=== PATIENT | female | born 1955 | race African-American/Black ===

== ENCOUNTER 2021-06-01 11:59 | Emergency (ER) | payer MEDICARE, SELFPAY ==
--- NOTE | ~2021-06-01 | CT_ITS ---
EXAMINATION: CT abdomen pelvis w con INDICATION: Chills and body aches TECHNIQUE: Computed tomographic images of the abdomen and pelvis were obtained after the administrati on of 100 cc of Omnipaque 350 intravenous contrast. The dose-length product (DLP) was 756.96 mGy-cm. Automated exposure control and iterative reconstruction technique were employed. COMPARISON: None available FINDINGS: There are patchy airspace opacities of the visualized lower lobes. The heart size is normal . Changes of gastric bypass surgery are noted. The liver, spleen, pancreas, gallbladder, and adrenal glands are normal. Cysts of the kidneys measure up to 1.5 cm on the left. No pathologically enlarged abdominal or pelvic lymph nodes are identified. There is no free intraperitoneal gas or evidence of b owel obstruction. There is severe lumbar spondylosis. IMPRESSION: 1. Patchy airspace opacities of the visualized lower lobes, consistent with pneumonia. Reviewed, dictated and finalized at location A. WORKER IMPRESSION: 1. Patchy airspace opacities of the visualized lower lobes, consistent with pne umonia.
[2021-06-01 12:07] VITALS: BP 154/91; PULSE 111; RESP 18; TEMP 37; O2SAT 100
--- NOTE | 2021-06-01 12:36 | ED.GENADULT ---
HPI - General Adult General Chief complaint: Nausea/Vomiting/Diarrhea Stated complaint: vomiting, chills Time Seen by Provider: 06/01/21 12:15 Source: patient and RN notes reviewed Limitations: no limitations History of Present Illness HPI narrative: 66-year-old female history gastric bypass presents to the emergency department complaining of nausea vomiting and diarrhea for the last 3 days. Patient has had a cough. Patient is vaccinated against covid. Patient has hsx of gastric bypass. Related Data Allergies Allergy/AdvReac Type Severity Reaction Status Date / Time No Known Allergies Allergy Verified 06/01/21 13:29 Review of Systems Review of Systems: CONSTITUTIONAL: Generalized fatigue and chills with subjective fever. EYES: Denies visual changes, redness, or discharge. ENT: Denies rhinorrhea, congestion, sore throat, or otalgia. CARDIOVASCULAR: Denies chest pain, palpitations, or edema. RESPIRATORY: Does have cough but denies any shortness of breath. GASTROINTESTINAL: Nausea vomiting diarrhea with generalized abdominal pain, more on the left GENITOURINARY: Denies dysuria or hematuria. SKIN: Denies rash or itching. MUSCULOSKELETAL: Denies back pain, joint pain, or myalgia. NEUROLOGIC: Denies headache, numbness, or weakness. PSYCHIATRIC: Denies anxiety or depression. All systems reviewed & are unremarkable except as noted in HPI and below Exam Narrative: APPEARANCE: Well appearing, no pain, no distress, well-nourished. HEAD: normocephalic, atraumatic. EYES: PERRLA/EOMI, conjunctivae clear. NECK: Supple. No adenopathy, no masses. RESPIRATORY: Airway patent, respirations nonlabored. Clear to auscultation bilaterally, no rales, rhonchi, wheezing. CARDIOVASCULAR: Regular rate and rhythm without murmurs rubs or gallops. ABDOMINAL: Soft, nontender, nondistended, normal bowel sounds MUSCULOSKELETAL: Moves all extremities. Strength/ROM intact, No edema, No calf tenderness. SKIN: Warm, dry. Normal Color PSYCHIATRIC: Normal affect/mood. Course Course Emergency Course: Patient was updated on the results of her imaging. CT scan showed no intra-abdominal pathology. Was evidence of a pneumonia. Patient was started on antibiotics while in the emergency room. Patient's Covid test was negative. Patient was comfortable with the plan for discharge and close follow-up. Patient was no distress at time of discharge from the emergency room. Vital Signs Vital signs: Vital Signs Temperature 98.6 F 06/01/21 12:07 Pulse Rate 111 H 06/01/21 12:07 Respiratory Rate 18 06/01/21 12:07 Blood Pressure 154/91 H 06/01/21 12:07 Pulse Oximetry 100 06/01/21 12:07 Temperature 98.6 F 06/01/21 12:07 Pulse Rate 102 H 06/01/21 15:15 Respiratory Rate 17 06/01/21 15:15 Blood Pressure 158/93 H 06/01/21 15:15 Pulse Oximetry 98 06/01/21 15:15 Medical Decision Making Vital Signs Vital Signs: Vital Signs Temperature 98.6 F 06/01/21 12:07 Pulse Rate 111 H 06/01/21 12:07 Respiratory Rate 18 06/01/21 12:07 Blood Pressure 154/91 H 06/01/21 12:07 Pulse Oximetry 100 06/01/21 12:07 Temperature 98.6 F 06/01/21 12:07 Pulse Rate 102 H 06/01/21 15:15 Respiratory Rate 17 06/01/21 15:15 Blood Pressure 158/93 H 06/01/21 15:15 Pulse Oximetry 98 06/01/21 15:15 Lab Data Lab results reviewed: Yes I reviewed the patient's lab results. Result diagrams: 06/01/21 13:35 06/01/21 13:35 Labs: Lab Results 06/01/21 06/01/21 06/01/21 Range/Units 13:35 13:35 13:35 WBC 15.7 H (4.5-10.0) K/mm3 RBC 4.15 L (4.2-5.4) M/mm3 Hgb 12.1 (12.0-15.0) g/dL Hct 36.5 L (37.0-47.0) % MCV 88.0 (80-100) fl MCH 29.2 (26-34) pg MCHC 33.2 (32-36) g/dl RDW 13.4 (11.5-14.5) % Plt Count 168 (150-375) k/mm3 MPV 11.5 H (7.4-10.4) fl Immature Gran % (Auto) 0.9 H (0-0.5) % Neut % (Auto) 88.9 H (45.5-73.1) % Lymph % (Auto) 6.8 L (18.3-44.2) %
[2021-06-01] MEDS: SODIUM CHLORIDE 0.9% IV 1,000 ML 999 ML IV CONT (13:31)
[2021-06-01] MEDS: ONDANSETRON INJ 4 MG/2 ML VIAL IV PUSH (13:31)
[2021-06-01] MEDS: Please add drug allergy info to patient profile. 1 EACH XX (13:31)
[2021-06-01] MEDS: HYDROmorphone HCL INJ (*CRX) 1 MG/ML SYR 0.5 MG IV PUSH (13:45)
[2021-06-01 13:49] LABS: Basophils Percent Auto 0.1 % (0.2-1.2); Hematocrit 36.5 % (37.0-47.0); Hemoglobin 12.1 g/dL (12.0-15.0); Immature Granulocyte Absolute 0.14 K/mm3 (0.00-0.031); Immature Granulocyte Percent A 0.9 % (0-0.5); Lymphocytes Absolute Auto 1.07 K/mm3 (0.9-3.2); Lymphocytes Percent Auto 6.8 % (18.3-44.2); Mean Corpuscular HGB Conc 33.2 g/dl (32-36); Mean Corpuscular Hemoglobin 29.2 pg (26-34); Mean Platelet Volume 11.5 fl (7.4-10.4); Monocytes Absolute Auto 0.5 K/mm3 (0.1-0.6); Monocytes Percent Auto 3.3 % (2.6-8.5); Neutrophils Absolute Auto 13.9 K/mm3 (1.3-6.7); Neutrophils Percent Auto 88.9 % (45.5-73.1); Platelet Count Result 168 k/mm3 (150-375); Red Blood Count 4.15 M/mm3 (4.2-5.4); Red Cell Distribution Width 13.4 % (11.5-14.5); White Blood Count 15.7 K/mm3 (4.5-10.0)
[2021-06-01 13:54] LABS: Lactic Acid Reflex 1.3 mmol/L (0.7-2.1)
[2021-06-01 13:56] LABS: Alanine Aminotransferase 16 U/L (4-35); Albumin Level 3.5 g/dL (3.5-5.1); Alkaline Phosphatase 126 U/L (38-126); Anion Gap 6 mmol/L (8-16); Aspartate Amino Transferase 25 U/L (14-36); Bilirubin,Total 1.2 mg/dL (0.2-1.3); Blood Urea Nitrogen 14 mg/dL (7-17); Calcium 8.4 mg/dL (8.4-10.2); Carbon Dioxide 27 mmol/L (22-30); Chloride 101 mmol/L (98-107); Estimated CRCL calculation 52 ml/min; Estimated Glomerular Filt Rate > 60; Glucose 121 mg/dL (65-110); Potassium 3.2 mmol/L (3.4-5.0); Sodium 134 mmol/L (137-145)
--- NOTE | 2021-06-01 13:59 | PC.NURSE ---
asked pt for urine sample. pt states she is unable to go at this time. and is refusing straight cath at this time.
--- NOTE | 2021-06-01 14:05 | PC.NURSE ---
pt to CT at this time.
[2021-06-01 14:06] LABS: Lipase 43 U/L (23-300)
[2021-06-01 14:47] LABS: SARS-CoV-2 RNA PCR Negative
[2021-06-01 15:15] VITALS: BP 158/93; PULSE 102; RESP 17; O2SAT 98
== END 2021-06-01 15:19 | disposition home or self-care (01) ==
PROVIDERS: Emergency Provider Emergency Medicine; PCP Registered Nurse
DX: J18.9 Pneumonia, unspecified organism (principal); R11.2 Nausea with vomiting, unspecified; Z20.822 Contact with and (suspected) exposure to COVID-19; Z98.84 Bariatric surgery status
CPT/HCPCS: 36415; 74177; 80053; 83605; 83690; 85025; 87040; 87147; 87181; 87186; 96374; 96375; 99284; C9803; J1170; J2405; J7030; Q9967; U0003; U0005

== ENCOUNTER 2021-06-07 12:44 | Inpatient (IN) | payer MEDICARE, SELFPAY ==
[2021-06-07] VITALS (17 sets, daily range): BP systolic 147–182; BP diastolic 71–98; PULSE 69–103; RESP 9–32; TEMP 36.1–37.2; O2SAT 93–100; BMI 37.4
--- NOTE | ~2021-06-07 | XR_ITS ---
XR chest 1V portable 06/07/2021 13:06 Indication: Cough Procedure: AP portable chest Comparison: No prior studies for comparison. Findings: Heart size normal. Elevated left diaphragm. Linear subsegmental atelectasis right perihilar and left basilar locations. No focal pneumonia, edema, significant effusion or pneumothorax. No acut e osseous abnormality. Impression: 1: Bilateral subsegmental atelectasis with elevation of the left diaphragm. Reviewed, dictated and finalized at location B. CUT OUT WORKER Impression: 1: Bilateral subsegmental atelectasis with elevation of the left diaphragm.
--- NOTE | 2021-06-07 13:30 | PC.NURSE ---
pt states has not taken her high blood pressure medications x 4-5 days because she hasnt felt good.
[2021-06-07 13:32] LABS: Basophils Percent Auto 0.2 % (0.2-1.2); Hematocrit 38.7 % (37.0-47.0); Hemoglobin 12.4 g/dL (12.0-15.0); Immature Granulocyte Absolute 0.15 K/mm3 (0.00-0.031); Immature Granulocyte Percent A 1.7 % (0-0.5); Lymphocytes Absolute Auto 0.62 K/mm3 (0.9-3.2); Lymphocytes Percent Auto 7.2 % (18.3-44.2); Mean Corpuscular Hemoglobin 28.8 pg (26-34); Mean Corpuscular Volume 89.8 fl (80-100); Mean Platelet Volume 9.4 fl (7.4-10.4); Monocytes Absolute Auto 0.2 K/mm3 (0.1-0.6); Monocytes Percent Auto 2.4 % (2.6-8.5); Neutrophils Absolute Auto 7.6 K/mm3 (1.3-6.7); Neutrophils Percent Auto 88.5 % (45.5-73.1); Platelet Count Result 505 k/mm3 (150-375); Red Blood Count 4.31 M/mm3 (4.2-5.4); Red Cell Distribution Width 13.1 % (11.5-14.5); White Blood Count 8.6 K/mm3 (4.5-10.0)
[2021-06-07] MEDS: atenoloL 50 MG TABLET PO (13:38)
[2021-06-07 13:44] LABS: Lactic Acid Reflex 2.3 mmol/L (0.7-2.1)
[2021-06-07 13:47] LABS: Alanine Aminotransferase 17 U/L (4-35); Albumin Level 3.7 g/dL (3.5-5.1); Alkaline Phosphatase 124 U/L (38-126); Anion Gap 10 mmol/L (8-16); Aspartate Amino Transferase 29 U/L (14-36); Bilirubin,Total 0.6 mg/dL (0.2-1.3); Blood Urea Nitrogen 6 mg/dL (7-17); Calcium 8.8 mg/dL (8.4-10.2); Carbon Dioxide 25 mmol/L (22-30); Chloride 102 mmol/L (98-107); Estimated CRCL calculation 68 ml/min; Estimated Glomerular Filt Rate > 60; Glucose 193 mg/dL (65-110); Sodium 137 mmol/L (137-145)
[2021-06-07] MEDS: SODIUM CHLORIDE 0.9% IV 1,000 ML 999 ML IV CONT (14:59)
[2021-06-07 15:00] LABS: SARS-CoV-2 RNA PCR Negative
--- NOTE | 2021-06-07 15:10 | ED.GENADULT ---
HPI - General Adult General Chief complaint: Recheck/Abnormal Lab/Rx Stated complaint: Abnormal Labs Time Seen by Provider: 06/07/21 12:45 Source: RN notes reviewed History of Present Illness HPI narrative: Patient presents emergency department from home for positive blood cultures. The patient was seen in the emergency department on 01 June for nausea vomiting at that time she was found to have lower lobe infiltrates and was started on a Z-Deng with blood cultures obtained patient states she took a Z-Deng but was continued to have some mild cough and called her PCP yesterday and was started on another Z-Deng yesterday states she was called today and recommended come the emergency department secondary to positive blood cultures she denies any fevers or chills does note some rhinorrhea and a cough she denies abdominal pain nausea or vomiting states she had been feeling generally weak but had been feeling better over the past several days Related Data Home Medications Medication Instructions Recorded Confirmed amlodipine-benazepril 1 cap PO DAILY 06/07/21 atenolol 50 mg PO DAILY 06/07/21 Allergies Allergy/AdvReac Type Severity Reaction Status Date / Time No Known Allergies Allergy Verified 06/01/21 13:29 Review of Systems Review of Systems: Gen.: Denies fevers or chills Eyes: Denies eye pain or visual change ENT: Reports congestion Respiratory: See HPI CV: Denies chest pain or palpitations GI: Denies abdominal pain nausea, emesis or diarrhea Musculoskeletal: Denies back pain or muscle pain Neuro: Denies numbness, tingling, weakness or focal weakness Skin: Denies rash Except as documented, all other systems reviewed and negative [facility] Past Medical History Medical History (Updated 06/07/21 @ 15:12 by Solomon Forte DO) Patient denies significant medical history Social History Social History (Updated 06/07/21 @ 15:11 by Solomon Forte DO) Smoking status: Never smoker Exam Narrative: APPEARANCE: No acute distress, nontoxic, resting in bed EYES: EOMI HEENT: Normocephalic, atraumatic, OMM RESPIRATORY: No respiratory distress Clear to auscultation bilaterally with no rhonchi wheezing or rales. CARDIOVASCULAR: Regular rate and rhythm without murmurs rubs or gallops. ABDOMINAL: Soft, nontender, nondistended, no rebound or guarding MUSCULOSKELETAl: Moves all extremities. No clubbing, cyanosis or edema. NEURO: Awake and alert. Following commands, speech normal, no focal deficits SKIN:: Warm, dry. No rashes lesions or abrasions PSYCHIATRIC: Normal affect/mood, Course Course Emergency Course: Reviewed old records patient with 2 blood cultures from 01 June showing Streptococcus pneumo sensitive to Levaquin and clindamycin Cussed with WEB OPERATIONS MANAGER Crystal for Dr. Cruz presentation work-up agrees with admission Discussed with patient and family results of workup and diagnosis. Discussed need for admission. Patient and family understand and agree to current treatment plan Vital Signs Vital signs: Vital Signs Pulse Rate 97 06/07/21 12:52 Respiratory Rate 19 06/07/21 12:52 Blood Pressure 177/98 H 06/07/21 12:52 Temperature 98.9 F 06/07/21 12:54 Pulse Rate 84 06/07/21 13:46 Respiratory Rate 15 06/07/21 13:46 Blood Pressure 165/88 H 06/07/21 13:46 Pulse Oximetry 96 06/07/21 13:46 Medical Decision Making Vital Signs Vital Signs: Vital Signs Pulse Rate 97 06/07/21 12:52 Respiratory Rate 19 06/07/21 12:52 Blood Pressure 177/98 H 06/07/21 12:52 Temperature 98.9 F 06/07/21 12:54 Pulse Rate 84 06/07/21 13:46 Respiratory Rate 15 06/07/21 13:46 Blood Pressure 165/88 H 06/07/21 13:46 Pulse Oximetry 96 06/07/21 13:46 Lab Data Result diagrams: 06/07/21 13:19 06/07/21 13:19 Labs: Lab Results 06/07/21 06/07/21 06/07/21 Range/Units 13:19 13:19 13:19 WBC 8.6 (4.5-10.0) K/mm3 RBC 4.31 (4.2-5.4) M/mm3 Hgb 12.
--- NOTE | 2021-06-07 15:46 | PC.NURSE ---
Food tray ordered for patient.
--- NOTE | 2021-06-07 15:48 | PM.IMHP ---
H&P: HPI History of Present Illness Date/Time: 06/07/21 15:48 Chief Complaint: Abnormal laboratories Narrative: Ms. Aldrich is a 66-year-old female who presented to emergency room after being called and told she had positive blood cultures. Patient states that she was here 6 days ago and was diagnosed with pneumonia and given a Z-Deng. Patient states that she was feeling much improved today and was very surprised to be called that she had positive blood cultures. Patient states her cough is significantly improved. Patient denies any sputum production. Patient denies any shortness of breath. Patient states the last 3-4 days she has not been taking her medications because she felt too weak and too tired. Patient denies any chest pain, shortness Lauren lightheadedness, dizziness, syncopal, or near syncopal episodes. Patient denies any fever or chills. Patient denies any dysuria, hematuria, frequency, or urgency. Patient has a known history of hypertension and states she states she has not been taking her medications for the last 3-4 days secondary to not feeling well. Review of Systems Review of Systems: A 12 point review of systems was completed patient all pertinent positive and negative per HPI the remainder are unremarkable. [facility] Past Medical History Medical History (Updated 06/07/21 @ 16:07 by Paty Yun APRN) Hypertension Patient denies significant medical history Surgical History Surgical History (Updated 06/07/21 @ 16:07 by Paty Yun APRN) History of gastric bypass Social History Social History (Updated 06/07/21 @ 15:11 by Solomon Forte DO) Smoking status: Never smoker Meds Home Medications and Allergies Home Medications Medication Instructions Recorded Confirmed Type azithromycin See Rx Instructions .ROUTE 06/01/21 Rx .COMPLEX #6 tablet benzonatate 100 mg PO BID PRN #14 cap 06/01/21 Rx ondansetron 4 mg PO Q8H PRN #14 tablet 06/01/21 Rx amlodipine-benazepril 1 cap PO DAILY 06/07/21 History atenolol 50 mg PO DAILY 06/07/21 History Allergies Allergy/AdvReac Type Severity Reaction Status Date / Time No Known Allergies Allergy Verified 06/01/21 13:29 Vital Signs Vital Signs - 24 hr 06/07/21 12:52 06/07/21 12:53 06/07/21 12:54 Temperature 37.2 C Pulse Rate 97 103 H 94 Respiratory Rate 19 16 20 Blood Pressure 177/98 H 177/98 H Pulse Oximetry 93 100 06/07/21 13:01 06/07/21 13:02 06/07/21 13:15 Temperature Pulse Rate 97 84 Respiratory Rate 32 H 22 H 14 Blood Pressure Pulse Oximetry 06/07/21 13:26 06/07/21 13:27 06/07/21 13:30 Temperature Pulse Rate 84 81 81 Respiratory Rate 13 13 9 L Blood Pressure 169/90 H Pulse Oximetry 100 100 06/07/21 13:31 06/07/21 13:38 06/07/21 13:45 Temperature Pulse Rate 83 88 81 Respiratory Rate 18 20 28 H Blood Pressure 171/89 H 171/89 H Pulse Oximetry 97 06/07/21 13:46 Temperature Pulse Rate 84 Respiratory Rate 15 Blood Pressure 165/88 H Pulse Oximetry 96 Exam Narrative: Constitutional: Patient is well-nourished in no acute distress HEENT: Moist mucous membranes. No scleral icterus. No lymphadenopathy. Lungs: Lung sounds are clear to auscultation bilaterally. No accessory muscle use. No rhonchi, rales, or wheezes noted. Cardiovascular: Apical pulse is regular rate and rhythm. S1-S2 noted, no S3 or S4 noted. No gallops, murmurs, or rubs noted. Abdomen: Soft, round, and nontender. No palpable masses. Extremities: No edema. Nontender. Skin: No rashes or lesions. Warm and dry. Skin is intact. Neurological: No focal neurological deficits. Cranial nerves II-XII grossly intact. Psychiatric: Cooperative, appropriate mood, and affect. H&P: Results Labs Labs: Short CBC 06/07/21 Range/Units 13:19 WBC 8.6 (4.5-10.0) K/mm3 Hgb 12.4 (12.0-15.0) g/dL Hct 38.7 (37.0-47.0) % Plt Count 505 H D (150-375) k/mm3 [facility] 06/07/21 1
--- NOTE | 2021-06-07 16:07 | PC.NURSE ---
1500 Report received from JUSTEN Acevedo
[2021-06-07 16:26] LABS: Reflex Lactic Acid Yes or No Add Lactic
--- NOTE | 2021-06-07 16:33 | PC.NURSE ---
Patient given food tray.
[2021-06-07 16:54] LABS: Lactic Acid 1.1 mmol/L (0.7-2.1)
--- NOTE | 2021-06-07 18:27 | ADMGEN ---
This patient, Nevaeh Aldrich, was admitted to Medical Room 346-01. Patient/family oriented to hospital policies and general routines including ID bracelet, bed and alarms, visiting hours, pain management, procedures, bathroom and other care routines, personal items, smoking policy, room service/diet, and visiting hours. Information on how to activate the Rapid Response Team has been discussed. Patient/Family are encouraged to report perceived risks to care and to ask questions if they do not understand what they are told or what they should do.
[2021-06-07] MEDS: BENZONATATE 100 MG CAPSULE PO (21:49)
[2021-06-08 06:24] VITALS: BP 163/93; PULSE 67; RESP 18; TEMP 35.9; O2SAT 100
[2021-06-08 08:37] VITALS: PULSE 70
[2021-06-08] MEDS: lisinopriL 20 MG TABLET 40 MG PO (08:37)
[2021-06-08] MEDS: atenoloL 50 MG TABLET PO (08:37)
[2021-06-08] MEDS: amLODIPine BESYLATE 5 MG TABLET 10 MG PO (08:37)
[2021-06-08] MEDS: ENOXAPARIN 40 MG/0.4 ML SYRINGE SUB-Q (08:37)
[2021-06-08] MEDS: SODIUM CHLORIDE 0.9% IV 1,000 ML 999 ML IV CONT (08:41)
[2021-06-08 10:27] LABS: Basophils Percent Auto 0.4 % (0.2-1.2); Hematocrit 38.8 % (37.0-47.0); Hemoglobin 11.8 g/dL (12.0-15.0); Immature Granulocyte Absolute 0.11 K/mm3 (0.00-0.031); Immature Granulocyte Percent A 1.4 % (0-0.5); Lymphocytes Percent Auto 21.6 % (18.3-44.2); Mean Corpuscular HGB Conc 30.4 g/dl (32-36); Mean Corpuscular Hemoglobin 28.6 pg (26-34); Mean Corpuscular Volume 94.2 fl (80-100); Mean Platelet Volume 9.4 fl (7.4-10.4); Monocytes Absolute Auto 0.6 K/mm3 (0.1-0.6); Neutrophils Absolute Auto 5.4 K/mm3 (1.3-6.7); Neutrophils Percent Auto 68.6 % (45.5-73.1); Platelet Count Result 460 k/mm3 (150-375); Red Blood Count 4.12 M/mm3 (4.2-5.4); Red Cell Distribution Width 13.3 % (11.5-14.5); White Blood Count 7.9 K/mm3 (4.5-10.0)
[2021-06-08 11:15] LABS: Anion Gap 6 mmol/L (8-16); Blood Urea Nitrogen 5 mg/dL (7-17); Calcium 8.2 mg/dL (8.4-10.2); Carbon Dioxide 24 mmol/L (22-30); Chloride 113 mmol/L (98-107); Estimated CRCL calculation 61 ml/min; Estimated Glomerular Filt Rate > 60; Glucose 97 mg/dL (65-110); Potassium 3.4 mmol/L (3.4-5.0); Sodium 143 mmol/L (137-145)
--- NOTE | 2021-06-08 13:22 | PM.IMPN ---
Progress Note: A&P Additional Plan Assessment and plan (1) Bacteremia: Code(s): R78.81 - Bacteremia Status: Acute Assessment and Plan: - Patient's blood cultures show strep pneumoniae and 2 bottles with sensitivity to Levaquin. Patient has been given an IV dose of Levaquin and will continue with this medication for a total of 14 days as an outpatient upon discharge to home. - No acute signs of Sepsis, does not meet SIRS criteria, and pt. is asymptomatic. - Original Treatment was for PNA that caused the BC to be drawn in the first place. - Predinsone 50 mg daily for 5 days started. (2) Hypertension: Code(s): I10 - Essential (primary) hypertension Status: Acute Assessment and Plan: - Pt's home medications were re-ordered and we are monitoring. Time Spent With Patient Time with patient: 15 - 25 minutes Subjective Date/time seen: 06/08/21 0840 This pt was examined at the bedside in interval assessment. She is starting to feel stronger, and VSS with exception of her elevated BP. This is likely because she has not taken her meds in several days because she reported that she was too weak. These meds have been re-ordered and we are observing her BP today. If remains stable, and no further signs of bacteremia that showed on her Blood culture of 06/01/21, then she will be stable for discharge to home tomorrow to resume her home meds and also continue with 14 days of po Levaquin therapy for Strep Pneumoniae that is sensitive to the Levaquin. The pt. is without any complaints of pain, dyspnea or any N/V. She is not having any respiratory distress or complaints at this time of any URI symptomology. Review of Systems Review of Systems: No new complaints. All systems reviewed & are unremarkable except as noted in HPI and below Exam Narrative: Constitutional: Patient is well-nourished in no acute distress HEENT: Moist mucous membranes. No scleral icterus. No lymphadenopathy. Lungs: Lung sounds are clear to auscultation bilaterally. No accessory muscle use. No rhonchi, rales, or wheezes noted. Cardiovascular: Apical pulse is regular rate and rhythm. S1-S2 noted, no S3 or S4 noted. No gallops, murmurs, or rubs noted. Abdomen: Soft, round, and nontender. No palpable masses. Extremities: No edema. Nontender. Skin: No rashes or lesions. Warm and dry. Skin is intact. Neurological: No focal neurological deficits. Cranial nerves II-XII grossly intact. Psychiatric: Cooperative, appropriate mood, and affect. Objective Data Vital Signs Vital Signs: Vital Signs - 24 hr 06/07/21 13:26 06/07/21 13:27 06/07/21 13:30 Temperature Pulse Rate 84 81 81 Respiratory Rate 13 13 9 L Blood Pressure 169/90 H Pulse Oximetry 100 100 06/07/21 13:31 06/07/21 13:38 06/07/21 13:45 Temperature Pulse Rate 83 88 81 Respiratory Rate 18 20 28 H Blood Pressure 171/89 H 171/89 H Pulse Oximetry 97 06/07/21 13:46 06/07/21 17:25 06/07/21 18:41 Temperature 98.5 F 98.0 F Pulse Rate 84 73 70 Respiratory Rate 15 18 20 Blood Pressure 165/88 H 182/86 H 157/88 H Pulse Oximetry 96 98 100 06/07/21 20:19 06/07/21 22:27 06/08/21 06:24 Temperature 97.0 F L 96.7 F L Pulse Rate 69 76 67 Respiratory Rate 18 18 Blood Pressure 147/71 H 163/93 H Pulse Oximetry 94 100 100 06/08/21 08:37 Temperature Pulse Rate 70 Respiratory Rate Blood Pressure Pulse Oximetry Intake/Output Intake/Output: Intake & Output 06/05/21 06/06/21 06/07/21 06/08/21 23:59 23:59 23:59 23:59 Intake Total 1150 980 Output Total 1100 Balance 1150 -120 Meds/Results Medications: Active Medications Generic Name Dose Route Start Last Admin Trade Name Freq PRN Reason Stop Dose Admin Amlodipine Besylate 10 mg 06/08/21 09:00 06/08/21 08:37 Amlodipine Besylate 5 Mg Tablet PO 07/08/21 08:59 10 mg DAILY JESSICA Administration Atenolol 50 mg 06/08/21 09:00 06/08/21 08:37 Atenolol 50 Mg Tablet PO
[2021-06-08] MEDS: predniSONE 40 MG, predniSONE 10 MG 50 MG PO (13:38)
[2021-06-08 14:00] VITALS: BP 143/59; PULSE 68; RESP 16; TEMP 36.1; O2SAT 100
--- NOTE | 2021-06-08 14:51 | WPDCDIQUERY2 ---
CDI Query Clarification Request 06/07 ERP documented diagnosis Bacteremia and Emergency Course: Reviewed old records patient with 2 blood cultures from 01 June showing Streptococcus pneumo sensitive to Levaquin and clindamycin 06/07 Bacteremia is documented in the problem list, bacteremia is defined as a Nonspecific laboratory finding of bacteria in the blood. For coding purposes please clarify more specific diagnosis for above findings <Janell Oropeza - Last Filed: 06/08/21 15:03>
[2021-06-08 15:05] LABS: Hemoglobin A1C 5.3 % (<5.7)
[2021-06-08 17:27] LABS: Basophils Percent Auto 0.2 % (0.2-1.2); Hematocrit 41.8 % (37.0-47.0); Immature Granulocyte Absolute 0.06 K/mm3 (0.00-0.031); Immature Granulocyte Percent A 0.6 % (0-0.5); Lymphocytes Absolute Auto 0.92 K/mm3 (0.9-3.2); Lymphocytes Percent Auto 9.5 % (18.3-44.2); Mean Corpuscular HGB Conc 31.1 g/dl (32-36); Mean Corpuscular Hemoglobin 28.3 pg (26-34); Mean Corpuscular Volume 91.1 fl (80-100); Mean Platelet Volume 9.4 fl (7.4-10.4); Monocytes Absolute Auto 0.2 K/mm3 (0.1-0.6); Monocytes Percent Auto 2.1 % (2.6-8.5); Neutrophils Absolute Auto 8.5 K/mm3 (1.3-6.7); Neutrophils Percent Auto 87.6 % (45.5-73.1); Platelet Count Result 598 k/mm3 (150-375); Red Blood Count 4.59 M/mm3 (4.2-5.4); Red Cell Distribution Width 13.4 % (11.5-14.5); White Blood Count 9.7 K/mm3 (4.5-10.0)
[2021-06-08 17:33] LABS: Alanine Aminotransferase 20 U/L (4-35); Albumin Level 3.8 g/dL (3.5-5.1); Alkaline Phosphatase 115 U/L (38-126); Anion Gap 9 mmol/L (8-16); Aspartate Amino Transferase 28 U/L (14-36); Bilirubin,Total 0.5 mg/dL (0.2-1.3); Blood Urea Nitrogen 4 mg/dL (7-17); Calcium 8.8 mg/dL (8.4-10.2); Carbon Dioxide 22 mmol/L (22-30); Chloride 116 mmol/L (98-107); Estimated CRCL calculation 61 ml/min; Estimated Glomerular Filt Rate > 60; Glucose 223 mg/dL (65-110); Potassium 3.6 mmol/L (3.4-5.0); Sodium 147 mmol/L (137-145)
[2021-06-08 22:08] VITALS: BP 149/64; PULSE 66; RESP 18; TEMP 36.7; O2SAT 97
[2021-06-09 06:20] VITALS: BP 133/102; PULSE 64; RESP 18; TEMP 35.7; O2SAT 100
[2021-06-09] MEDS: hydroCHLOROthiazide 12.5 MG CAPSULE PO (08:03)
[2021-06-09] MEDS: lisinopriL 20 MG TABLET 40 MG PO (08:03)
[2021-06-09] MEDS: amLODIPine BESYLATE 5 MG TABLET 10 MG PO (08:03)
[2021-06-09] MEDS: predniSONE 40 MG, predniSONE 10 MG 50 MG PO (08:03)
[2021-06-09 08:04] VITALS: PULSE 64
[2021-06-09] MEDS: atenoloL 50 MG TABLET PO (08:04)
[2021-06-09] MEDS: ENOXAPARIN 40 MG/0.4 ML SYRINGE SUB-Q (08:04)
[2021-06-09 09:56] VITALS: BP 175/63
--- NOTE | 2021-06-09 10:48 | PM.DS ---
DS: Admitting Diagnosis Discharge Date 06/09/2021 Admitting Diagnosis Strep Pneumoniae Bacteremia Hypertension DS: Discharge Diagnosis Discharge Diagnosis (1) Bacteremia due to Streptococcus pneumoniae: Onset Date: Unknown Code(s): R78.81 - Bacteremia; B95.3 - Streptococcus pneumoniae as the cause of diseases classified elsewhere Status: Acute Assessment and Plan: - Pt's blood cultures from her hospital visit 06/01/21 grew out Strep Pneumonaie that was sensitive to Levaquin. The pt was asked to come back to the hospital and be admitted, which she was. She was started on Levaquin and is stable. She feels better overall. She may finish a total of 14 days of Levaquin 750 mg po at home for her treatment and follow up with PCP in one week. - Not meeting sepsis criteria. - VSS (2) Hypertension: Onset Date: Unknown Qualifiers: Hypertension type: primary hypertension Qualified Code(s): I10 - Essential (primary) hypertension Code(s): I10 - Essential (primary) hypertension Status: Chronic Assessment and Plan: - Not well controlled. BP's have been waxing and waning here on her current doses of Amlodipine 10 mg po daily and Lisinopril 40 mg po daily. - This AM, started HCTZ 12.5 mg po daily and will refer to PCP for further follow up/titration/changes in medication management. Her BP is stable at this time with the addition of the new medication. As this is just the beginning of a new medication, I will have pt. make a list of BP's measured TID at the same time daily and have her take that with her to the PCP for further review. DS: Summary Hospital Course Hospital Course: This very pleasant 66 year old female patient with significant PMH of HTN presented to the ER on 06/07/21 after being called by the ER to return for treatment for positive blood cultures from an ER visit on 06/01/21 at which time she was diagnosed with PNA. She was started on Levaquin as her blood culture had grown out Strep Pneumonaie that was sensitive to it. She did not have any symptoms of Sepsis upon arrival or admission and she has been stable in the setting of having a respiratory infection since and is now appropriate for an outpatient treatment with Levaquin daily for 14 days as well as tapering prednisone. Her blood pressure has been fluctuating during admission and at times she has had a DBP in the low 100s despite her normal treatments of Amlodipine 10 mg daily, Lisinopril 40 mg daily. Today HCTZ 12.5 mg po daily was added to her regimen and she had an improvement in her overall BP. She is stable to discharge to home at this time with instructions for a low sodium diet and to keep a log of her pressures TID for her physician to see to further manage her dosing. She is agreeable to this POC and advises she will adhere to it. She also mentions that she has been drinking a lot of soda, and that may be the reason for her BP being elevated. I acknowledged that it may be as there is a lot of sodium in soda, and she is agreeable to not drinking it. Time Spent with Patient Time attestation: Total time spent providing and/or coordinating discharge services: 35 minutes Exam Const: General: comfortable and no acute distress Limitations: no limitations HENMT: Mouth: Yes dry mucous membranes Eyes: Sclera: sclerae normal Neck: Neck: supple and no JVD Lymphatic: lymphadenopathy not noted Resp: Effort & Inspection: normal respiratory effort Auscultation: clear to auscultation bilaterally Cardio: Rate: regular rate Rhythm: regular rhythm GI: GI Palp: Yes Soft to palpation and No Tenderness to palpation present (GI) Auscultation: normal bowel sounds Skin: General skin exam: normal color and no rashes or lesions noted Neuro: General: gait normal Motor exam (neuro): Normal motor muscle tone present throughout Extrem: General: normal to inspection Right upper extremity: normal to inspection Left upper extremity: normal
== END 2021-06-09 12:30 | disposition home or self-care (01) | DRG 871 ==
LOC: ANHED 15:12 → ANH3MED 06-08 06:45
PROVIDERS: Admitting Provider Internal Medicine; Emergency Provider Emergency Medicine; PCP Registered Nurse; Visit Provider Nurse Practitioner Adult Health
DX: R78.81 Bacteremia (principal); J18.9 Pneumonia, unspecified organism; I10 Essential (primary) hypertension; Z20.822 Contact with and (suspected) exposure to COVID-19; Z98.84 Bariatric surgery status; B95.3 Streptococcus pneumoniae as the cause of diseases classified elsewhere; Z79.899 Other long term (current) drug therapy
CPT/HCPCS: 36415; 71045; 80048; 80053; 83036; 83605; 85025; 87040; 96365; 99285; A9270; C9803; G0378; J1650; J1956; J7030; J7512; U0003; U0005

== ENCOUNTER 2024-12-09 17:01 | Emergency (ER) | payer MEDICARE, SELFPAY ==
[2024-12-09 17:12] VITALS: BP 146/72; PULSE 71; RESP 18; TEMP 36.8; O2SAT 100
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
== END 2024-12-09 18:16 | disposition home or self-care (01) ==
PROVIDERS: Emergency Provider Nurse Practitioner Family; PCP Registered Nurse
DX: S39.012A Strain of muscle, fascia and tendon of lower back, initial encounter (principal); S13.4XXA Sprain of ligaments of cervical spine, initial encounter; V89.2XXA Person injured in unspecified motor-vehicle accident, traffic, initial encounter; I10 Essential (primary) hypertension; Z98.84 Bariatric surgery status
CPT/HCPCS: 99213; G0463